=== PATIENT | male | born 1995 | race Caucasian/White ===

== ENCOUNTER 2017-04-04 10:14 | Inpatient (IN) | payer SELFPAY ==
[2017-04-04 10:48] LABS: BASOPHILS 0.2 % (0-2); EOSINOPHILS 3.9 % (0-7); HEMATOCRIT 37.3 % (42.0-54.0); HEMOGLOBIN 12.6 g/dL (13.5-17.5); IMMATURE GRANULOCYTES 0.2 % (0-5); LYMPHOCYTES 26.4 % (15-50); MCH 30.4 pg (26.0-34.0); MCHC 33.8 g/dL (31.0-37.0); MCV 90.1 fL (80.0-100.0); MEAN PLATELET VOLUME 10.2 fL (7.4-10.4); MONOCYTES 13.3 % (2-11); PLATELET COUNT 160 10x3/uL (130-400); RBC 4.14 10x6/uL (4.20-6.10); RDW 12.9 % (11.5-14.5)
[2017-04-04 11:03] LABS: ALKALINE PHOSPHATASE 103 U/L (46-116); ALT (SGPT) 31 U/L (10-68); BILIRUBIN - TOTAL 0.63 mg/dL (0.2-1.3); CALC OSMOLALITY 283 mosm/kg (275-300); CALCIUM 8.8 mg/dL (8.5-10.1); CARBON DIOXIDE 28.7 mmol/L (21.0-32.0); CHLORIDE - SERUM 103 mmol/L (98-107); CREATININE - SERUM 0.6 mg/dL (0.6-1.3); GLUCOSE 97 mg/dL (74-106); POTASSIUM - SERUM 3.2 mmol/L (3.5-5.1); PROTEIN - SERUM 6.5 g/dL (6.4-8.2); SODIUM 142 mmol/L (136-145); UREA NITROGEN 15 mg/dL (7-18); eGFR NON AFRICAN AMERICAN > 90 mL/min (90-120)
[2017-04-04 11:09] LABS: TROPONIN-I < 0.017 ng/mL (0.000-0.060)
[2017-04-04 13:52] VITALS: BP 77/42; BMI 12.1
--- NOTE | 2017-04-04 14:29 | NUR ---
UNABLE TO ADMINISTER IVPB ANTIBIOTICS AT THIS TIME. NOT ON THE FLOOR. PHARMACY NOTIFIED. WILL CONTINUE TO MONITOR
--- NOTE | 2017-04-04 14:59 | NUR ---
PT'S MOM CAMR TO NURSE'S STATION ASKING IF SHE COULD HELP PT TO THE BATHROOM. I TOLD MOM NO, I WOULD LIKE TO SEE HOW THE PT WALKS. WENT INTO PT'S ROOM AND ASSISTAED HIM TO THE BATHROOM. PT DID NOT NEED ANY HELP GETTING HIMSELF OUT OF THE BED. HE HELD OUT HIS LEFT HAND FOR ASSISTANCE ONC3E HE WAS ON THE SIDE OF THE BED. PT STOOD WITH VERY MINIMAL ASSISTANCE AND WALKED TO THE BATHROOM WITH NO PHYSICAL ASSISTANCE. I WALKED NEXT TO HIM TO THE BATHROOM. I INFORMED MOM TO LET ME KNOW WHEN HE IS FINNISHED AND I WILL COME BACK AND ASSIST HIM TO THE BED. PT'S MOM CAME TO NURSES STATION STATING THAT SHE NEEDS ME IN THE ROOM NOW. SHE SOUNDED THAT SHE NEEDED ASSISTANCE IN AN URGENT WAY. RUSHED TO ROOM AND PT WAS IN THE BED WITH HIS KNEES BENT TO HIS CHEST, USING HIS PERSONAL INHALER. WHEN THE PT WAS ASKED WHAT HAPPEN THE MOTHER ANSWERED "HE FELL". I ASKED PT TO TAKE SOME DEEP BREATHS AND PT WAS VERY AGITATED AND WOULD NOT ANSWER ANY QUESTIONS, DEFERING ALL QUESTIONS TO HIS MOM. I TOLD PT THAT I NEEDED HIM TO ANSWER. PT BECAME MORE AGGITATED. PT'S POX WAS 91% ON 3L. INCREASED TO 4L AND POX CAME UP TO 98%. ASKED PT TO PLEASE CALM DOWN AND TAKE SOME DEEP BREATHS. BP WAS 97/69. MOTHER REQUESTED PAIN MEDICATION ADN SOMETHING FOR ANXIETY FOR PT. PT'S MOTHER STATES THAT PT DOES NOT TAKE ANYTHING FOR PAIN OR ANXIETY AT HOME. I ASKED THE PT AGAIN WHAT HAPPENED AND HE STATED "I CANT BREATH, I ALMOST FELL AND I AM SWEATING. I ASKED TO CLARIFY, DO YOU ALMOST FALL OR DID YOU FALL. PT WOULD NOT ANSWER MY QUESTION ADN AGAIN DEFERED THE QUESTION TO HIS MOM. MOM HESITATED ADN STATED HE FELL. I LEFT THE ROOM TO CALL DR. SHEPPARD AND PT STARTED YELLING AT HIS MOTHER. I WENT BACK INTO THE ROOM AND ASKED THE PT TO PLEASE NOT YELL. PT STATED THAT HIS MOTHER STARTED IT. DR. SHEPPARD NOTIFIED. NO NEW ORDERS. JOYCE KAPLAN, NOTIFIED. JOYCE INSTRUCTED ME TO MAKE A DETAILED NOTE AND NOT A FALL REORT AND PT STATING HE "ALMOST FELL". WILL CONTINUE TO MONITOR. WILL REEDUCATE PT AND PT'S MOM TO USE THE CALL B[place]LEY FOR ASSISTANCE AND NOT TO GET OUT OF BED WITH OUT ASSISTANCE.
--- NOTE | 2017-04-04 15:23 | NUR ---
PT B/P IS 80/45.
[2017-04-04 16:55] VITALS: BP 80/45
[2017-04-04 18:44] LABS: PRE-ALBUMIN 14.2 mg/dL (18.0-35.7); THYROID STIMULATING HORMONE 1.2 uIU/mL (0.36-3.74)
--- NOTE | 2017-04-04 20:35 | NUR ---
CHECK PT'S BP IS 100/62.
[2017-04-04 22:33] VITALS: BP 100/62
--- NOTE | 2017-04-04 23:15 | NUR ---
RN NOTE: PT RESTING IN HIGH OG'S POSITION WITH EYES CLOSED...HAS FREQUENT CONGESTED COUGH. IV IN RIGHT FA PATENT WITH NS INFUSING AT 125 ML / HR. FAMILY MEMBER IS AT BEDSIDE. WILL CONTINUE TO MONITOR FOR NEEDS.
--- NOTE | 2017-04-04 23:43 | NUR ---
LAYING ON RIGHT SIDE, EYE CLOSE, CALL LIGHT IN REACH.
--- NOTE | 2017-04-05 01:27 | NUR ---
PT C/O HARD TO BREATH, CALL RESPIRATORY THERAPY STAFF, AND WILL MONITOR CLOSELY.
--- NOTE | 2017-04-05 01:28 | NUR ---
REPOSITION PT, HOB 45 DEGREE.
[2017-04-05 01:36] VITALS: BP 126/71
--- NOTE | 2017-04-05 01:54 | NUR ---
CHECK PT SPO2: 94%, STATES HE DOES NOT HAS MUCH TROUBLE BREATHING ANY MORE.
--- NOTE | 2017-04-05 02:11 | NUR ---
RESPIRATORY STAFF GIVEN TREATMENT FOR PT.
--- NOTE | 2017-04-05 03:23 | NUR ---
REST QUIETLY IN BED, EYE CLOSE, CALL LIGHT IN REACH.
[2017-04-05 05:04] VITALS: BP 110/61
[2017-04-05 05:15] LABS: BASOPHILS 0.2 % (0-2); EOSINOPHILS 0.3 % (0-7); HEMATOCRIT 35.8 % (42.0-54.0); HEMOGLOBIN 11.7 g/dL (13.5-17.5); IMMATURE GRANULOCYTES 0.2 % (0-5); MCHC 32.7 g/dL (31.0-37.0); MCV 91.8 fL (80.0-100.0); MEAN PLATELET VOLUME 10.3 fL (7.4-10.4); NEUTROPHILS 72.3 % (40-80); PLATELET COUNT 166 10x3/uL (130-400); RDW 13.2 % (11.5-14.5); WBC 6.4 10x3/uL (4.8-10.8)
[2017-04-05 05:47] LABS: CALC OSMOLALITY 283 mosm/kg (275-300); CALCIUM 8.2 mg/dL (8.5-10.1); CARBON DIOXIDE 26.1 mmol/L (21.0-32.0); CHLORIDE - SERUM 106 mmol/L (98-107); GLUCOSE 81 mg/dL (74-106); SODIUM 143 mmol/L (136-145); UREA NITROGEN 13 mg/dL (7-18)
[2017-04-05 05:48] LABS: CREATININE - SERUM 0.4 mg/dL (0.6-1.3); eGFR NON AFRICAN AMERICAN > 90 mL/min (90-120)
[2017-04-05 08:21] VITALS: BP 151/78
--- NOTE | 2017-04-05 11:41 | HP ---
PATIENT: HAIM FRANCO MEDICAL RECORD: [id number] ACCOUNT: [id number] LOCATION:[facility] : 93 ADMISSION DATE: 04/04/17 HISTORY AND PHYSICAL EXAMINATION HISTORY OF PRESENT ILLNESS: Haim is a 21-year-old white male who presents to the Emergency Room with shortness of breath, cough, shakiness and anxiety. He is found to be tachycardic and little bit hypoxic with sats in the 60s on room air. Flu A and B are negative. His chest x-ray shows findings compatible with acute bronchitis with hyperventilation. He has posterior horn syndrome and has recently moved here from [place] for family. He was followed by a specialist there. 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 His mom states that he is currently on no medications. He has had various problems with maintaining weight. He seems anxious at this time. His mentation is good. He is able to carry on a good conversation. He does admit to smoking marijuana to help with his appetite and this calms him down. He states that since he has been smoking marijuana, he has been able to go out in public. He only weighs about 80 pounds. PAST MEDICAL HISTORY: Significant for posterior horn syndrome, pectus deformity requiring surgery, hiatal hernia with severe reflux for which he has not taken meds for because he did not feel it helps, chronic anxiety and chronic back pain. PREVIOUS SURGERIES: Include chest surgery for pectus excavatum. ALLERGIES: None. MEDICATIONS: None at this time. FAMILY HISTORY: No other genetic illnesses. SOCIAL HISTORY: He lives with family. He does not smoke cigarettes. He does smoke marijuana. Denies alcohol. Apparently other family members do smoke cigarettes. REVIEW OF SYSTEMS: He complains of chronic anxiety and difficulties with sleep. Mom denies any compulsive behaviors, although he seems rather compulsive to me right now. No recent change in bladder or bowel habits. PHYSICAL EXAMINATION: GENERAL: Very skinny and cachectic. HEENT: Head is normocephalic. NECK: Soft and supple. Marked thoracic kyphosis. EXTREMITIES: He has very little muscle mass. He has marked enlargement of his joints. SKIN: Scar from previous chest surgery is noted. ABDOMEN: Soft. LOWER EXTREMITIES: Very cachectic. IMPRESSION: 1. Acute bronchitis. 2. Posterior horn syndrome, cachectic, underweight, anxiety/possible other disorders. HISTORY AND PHYSICAL [id number] HAIM FRANCO PLAN: Admit, IV fluids. We will ask psych to see to give any recommendations on meds for his issues. Check a prealbumin level. Get a dietary consult. Get a case management consult, IV antibiotics, updrafts, full liquids for now, start some p.r.n. lorazepam. Start baclofen for back pain. See orders for plan. TRANSINT:[id number] Voice Confirmation ID: [id number] DOCUMENT ID: [id number] JOHN SHEPPARD DO at 1141 CC: [id number] DICTATION DATE: 04/04/171808 SAMPLE WASHER: 04/04/171954 ADM IN [facility] [address] [place] [address]
[2017-04-05 13:27] VITALS: BMI 12.1
[2017-04-05 13:28] VITALS: BP 125/89
[2017-04-05 16:13] VITALS: BP 132/72
--- NOTE | 2017-04-05 21:18 | NUR ---
REC'D SITTING UP IN BED. ALERT AND ORIENTED X4. REPORTED PAIN IN CHEST WHEN BREATHING. DENIED NEEDS AT THIS TIME. INSTRUCTED TO CALL IF NEEDED ANYTHING, VERBALIZED UNDERSTANDING. NO DISTRESS NOTED. BED LOW, LOCKED, CALL LIGHT IN REACH. WILL CONT TO MONITOR.
--- NOTE | 2017-04-05 22:19 | NUR ---
IS COMPLAINING OF DIARRHEA. CALLED [facility], SAID TO ORDER A C-DIFF CULTURE AND IMODIUM. CALLED NEL SIMPSON RN AND LET HER KNOW THAT I NEEDED IT PULLED AT 2220.
[2017-04-06] VITALS: BP 114/79
--- NOTE | 2017-04-06 03:00 | NUR ---
PT IN BED WITH NO DISTRESS. RESPIRATIONS EVEN AND UNLABORED. SIDE RAILS X 2. BED LOW. CALL LIGHT IN REACH.
[2017-04-06 04:00] VITALS: BP 97/64
--- NOTE | 2017-04-06 06:21 | NUR ---
IS NOT WANTING LAB TO DRAW BLOOD THIS MORNING BECAUSE HE DIDNT SLEEP ALL NIGHT
--- NOTE | 2017-04-06 07:45 | NUR ---
PT ASSESSMENT COMPLETE NO ACUTE DISTRESS NOTED VOICES ALL NEEDS TO STAFF FAMILY AT SIDE. PT EXPRESSED DESIRE TO DISCHARGE TO HOME. SEE FLOWSHEET FOR FULL ASSESSMENT
--- NOTE | 2017-04-06 07:51 | NUR ---
INCREASED FIO2 TO 33% SP02 CURRENTLY 93%
[2017-04-06 09:17] LABS: FOLATE (FOLIC ACID) - SERUM 10.1 ng/mL (>3.0)
[2017-04-06 09:31] LABS: ALBUMIN 2.6 g/dL (3.4-5.0); ALKALINE PHOSPHATASE 93 U/L (46-116); ALT (SGPT) 25 U/L (10-68); BILIRUBIN - TOTAL 0.34 mg/dL (0.2-1.3); CALC OSMOLALITY 276 mosm/kg (275-300); CALCIUM 8.1 mg/dL (8.5-10.1); CARBON DIOXIDE 23.8 mmol/L (21.0-32.0); CHLORIDE - SERUM 108 mmol/L (98-107); GLUCOSE 94 mg/dL (74-106); POTASSIUM - SERUM 3.4 mmol/L (3.5-5.1); SODIUM 139 mmol/L (136-145); UREA NITROGEN 11 mg/dL (7-18)
[2017-04-06 09:40] VITALS: BP 115/80
[2017-04-06 09:40] LABS: CREATININE - SERUM 0.6 mg/dL (0.6-1.3); eGFR NON AFRICAN AMERICAN > 90 mL/min (90-120)
[2017-04-06 09:47] LABS: BASOPHILS 0.4 % (0-2); HEMATOCRIT 35.4 % (42.0-54.0); HEMOGLOBIN 11.8 g/dL (13.5-17.5); IMMATURE GRANULOCYTES 0.2 % (0-5); LYMPHOCYTES 25.4 % (15-50); MCH 30.4 pg (26.0-34.0); MCHC 33.3 g/dL (31.0-37.0); MCV 91.2 fL (80.0-100.0); MONOCYTES 6.8 % (2-11); NEUTROPHILS 65.2 % (40-80); PLATELET COUNT 184 10x3/uL (130-400); RBC 3.88 10x6/uL (4.20-6.10); RDW 13.1 % (11.5-14.5); WBC 5.6 10x3/uL (4.8-10.8)
[2017-04-06] MEDS ORDERED: ALBUTEROL2.5 MG/3 M INH (10:37)
[2017-04-06] MEDS ORDERED: ZITHROMAX250 MG PO (10:37)
[2017-04-06] MEDS ORDERED: PEPCID20 MG PO (10:37)
[2017-04-06] MEDS ORDERED: MUCINEX DM ER1 EAC1 PO (10:37)
[2017-04-06] MEDS ORDERED: ATIVAN0.5 MG PO (10:37)
[2017-04-06] MEDS ORDERED: REMERON15 MG/UDTA PO (10:37)
[2017-04-06] MEDS ORDERED: OMNICEF300 MG PO (10:37)
[2017-04-06] MEDS ORDERED: ALBUTEROL2.5 MG/3 M UPD (10:37)
[2017-04-06] MEDS ORDERED: FLORAJEN3 CAPS460 MG PO (10:37)
[2017-04-06] MEDS ORDERED: TESSALON PERLE100 MG PO (10:37)
[2017-04-06 12:45] VITALS: BP 115/80
--- NOTE | 2017-04-06 12:46 | NUR ---
PATIENT BEING DISCHARGED HOME TODAY WITH HIS MOTHER. PATIENT SET UP WITH HOME 02 FROM [facility] WITH NEBULIZER.
--- NOTE | 2017-04-06 12:54 | NUR ---
Patient Name: SHALOM FRANCO Admission Status: ER Accout number: [id number] Admission Date: 04-04-2017 : 1995 Admission Diagnosis: Attending: JOHN SHEPPARD Current LOS: 2 Anticipated DC Date: Planned Disposition: Home Primary Insurance: UNINSURED DISCOUNT PLAN Discharge Planning Comments: CM MET WITH PATIENT AND MOM (RADHA) TO ASSESS DISCHARGE PLANNING NEEDS. PATIENT AND MOM JUST MOVED HERE FROM [place] AND HE IS NEW TO THE AREA WITHOUT A PCP OR PHARMACY. PT WILL BE SEEN BY DR BORDEN AFTER DISCHARGED AND THEY WILL GET A PHARMACY FROM THERE. PATIENT STATED THAT HIS HOME IS SAFE TO RETURN AND HE HAS A WHEELCHAIR AT HOME. PATIENT DOES NOT WANT HOME HEALTH AT THIS TIME, CM SET HIM UP WITH O2 AND NEBULIZER WITH [facility]. CM WILL CONTINUE TO FOLLOW AND ASSIST IF NEEDED. PCP: MICHI GARCIA (MOTHER) [phone] Herbarium Curator: Lora Zaman * Is the patient Alert and Oriented? Yes 0 * How many steps to enter\exit or inside your home? 0 0 * PCP MICHI 0 * Pharmacy NONE 0 * Preadmission Environment Home with Family 0 * ADLs Independent 0 * Equipment Wheelchair 0 * List name and contact numbers for known caregivers / representatives who currently or will assist patient after discharge: RADHA (MOM) [phone] 0 * Community resources currently utilized None 0 * Additional services required to return to the preadmission environment? Yes 0 * Can the patient safely return to the preadmission environment? Yes 0 * Has this patient been hospitalized within the prior 30 days at any hospital? No 0 Grand Total: 0
--- NOTE | 2017-04-06 14:07 | NUR ---
PT DISCHARGED PER ORDER AT THIS TIME HAS HOME O2 WITH PORTABLE DELIVERED TO ROOM PER [facility] AND HOME O2 OT BE DELIVERED TODAY PIV D/C TIP IN TACT. LEFT VIA WHEELCHAIR WITH MOTHER AT SIDE ACCOMPANIED PER NURSING STAFF TO PRIVATE VEHICLE.
== END 2017-04-06 14:09 | disposition home or self-care (01) | DRG 202 ==
LOC: D.ER 10:14 → D.MS 13:05
PROVIDERS: Emergency Medicine; ADMIT Family Medicine
DX: J20.9 Acute bronchitis, unspecified (principal); E43 Unspecified severe protein-calorie malnutrition; Z68.1 Body mass index [BMI] 19.9 or less, adult; J43.9 Emphysema, unspecified; K21.9 Gastro-esophageal reflux disease without esophagitis; K44.9 Diaphragmatic hernia without obstruction or gangrene; F12.90 Cannabis use, unspecified, uncomplicated

== ENCOUNTER 2019-01-08 09:56 | Emergency (ER) | payer MEDICAID ==
[~2019-01-08] VITALS: Ht 172.7 cm; Wt 36.4 kg
[~2019-01-08 09:56] MED LIST: ALBUTEROL2.5 MG/3 M INH; ALBUTEROL2.5 MG/3 M UPD; ATIVAN0.5 MG PO; FLORAJEN3 CAPS460 MG PO; MUCINEX DM ER1 EAC1 PO; OMNICEF300 MG PO; PEPCID20 MG PO; REMERON15 MG/UDTA PO; TESSALON PERLE100 MG PO; ZITHROMAX250 MG PO
[2019-01-08 09:59] VITALS: Ht 172.7 cm; Wt 36.4 kg
[2019-01-08 11:09] LABS: BASOPHILS 0.3 % (0-2); EOSINOPHILS 0.8 % (0-7); HEMATOCRIT 37.8 % (42.0-54.0); HEMOGLOBIN 13.1 g/dL (13.5-17.5); IMMATURE GRANULOCYTES 0.2 % (0-5); LYMPHOCYTES 14.6 % (15-50); MCH 30.3 pg (26.0-34.0); MCHC 34.7 g/dL (31.0-37.0); MCV 87.5 fL (80.0-100.0); MEAN PLATELET VOLUME 9.9 fL (7.4-10.4); MONOCYTES 7.5 % (2-11); NEUTROPHILS 76.6 % (40-80); PLATELET COUNT 177 10x3/uL (130-400); RBC 4.32 10x6/uL (4.20-6.10); RDW 13.1 % (11.5-14.5); WBC 11.7 10x3/uL (4.8-10.8)
[2019-01-08 11:28] LABS: ALKALINE PHOSPHATASE 94 U/L (46-116); ALT (SGPT) 18 U/L (10-68); BILIRUBIN - TOTAL 0.77 mg/dL (0.2-1.3); CALC OSMOLALITY 270 mosm/kg (275-300); CALCIUM 8.5 mg/dL (8.5-10.1); CARBON DIOXIDE 29.5 mmol/L (21.0-32.0); CHLORIDE - SERUM 101 mmol/L (98-107); CREATININE - SERUM 0.6 mg/dL (0.6-1.3); GLUCOSE 90 mg/dL (74-106); POTASSIUM - SERUM 3.6 mmol/L (3.5-5.1); PROTEIN - SERUM 6.5 g/dL (6.4-8.2); SODIUM 136 mmol/L (136-145); UREA NITROGEN 10 mg/dL (7-18); eGFR NON AFRICAN AMERICAN > 90 mL/min (90-120)
[2019-01-08] MEDS ORDERED: ULTRAM50 MG PO (12:12)
[2019-01-08] MEDS ORDERED: CLEOCIN HCL300 MG PO (12:12)
[2019-01-08 12:34] VITALS: BP 110/64
== END 2019-01-08 12:37 | disposition home or self-care (01) ==
LOC: D.ER 09:56
PROVIDERS: Emergency Medicine
DX: L02.31 Cutaneous abscess of buttock (principal)